=== PATIENT | female | born 1965 | race African-American/Black ===

== ENCOUNTER 2017-02-01 14:20 | Emergency (ER) | payer OTHER | END 2017-02-01 15:03 | disposition home or self-care (01) | LOC: ER 14:20 | DX: M19.042 Primary osteoarthritis, left hand (principal); I10 Essential (primary) hypertension; F32.9 Major depressive disorder, single episode, unspecified; Z90.710 Acquired absence of both cervix and uterus; Z79.899 Other long term (current) drug therapy; Z88.1 Allergy status to other antibiotic agents; Z88.2 Allergy status to sulfonamides; Z88.8 Allergy status to other drugs, medicaments and biological substances ==